=== PATIENT | female | born 1960 | race African-American/Black ===

== ENCOUNTER 2023-10-09 05:24 | Day surgery (SDC) | payer OTHER ==
[2023-10-05 15:22] VITALS: BMI 23.1
[2023-10-09 10:30] VITALS: TEMP 97.8
[2023-10-09 10:42] VITALS: RESP 18
[2023-10-09 10:58] VITALS: PULSE 67
[2023-10-09 11:46] LABS: BASO % 0.2 % (0-2.0); EOS % 0.2 % (0-4.5); HEMATOCRIT 40.2 % (32.4-45.2); HEMOGLOBIN 13.8 GM/dL (10.7-15.3); LYMPH % 35.5 % (8-40); MCH 33.6 pg (25.7-33.7); MCHC 34.4 g/dl (32.0-36.0); MEAN CELL VOLUME 97.5 fl (80-96); MEAN PLT VOLUME 7.7 fl (7.5-11.1); MONO % 9.2 % (3.8-10.2); NEUT % 54.9 % (42.8-82.8); PLATELET COUNT 256 10^3/uL (134-434); RBC 4.13 M/mm3 (3.60-5.2); RDW 13.7 % (11.6-15.6); RETICULOCYTES 1.36 % (0.5-1.5)
[2023-10-09 11:47] VITALS: BP 138/75
[2023-10-09 12:00] LABS: POTASSIUM 3.7 mmol/L (3.5-5.1)
[2023-10-09 12:03] LABS: ALBUMIN 3.9 g/dl (3.4-5.0); BLOOD UREA NITROGEN 9.7 mg/dL (7-18); CALCIUM 9.5 mg/dL (8.5-10.1)
[2023-10-09 12:06] LABS: CREATININE 0.9 mg/dL (0.55-1.3)
[2023-10-09 12:07] LABS: TOT PROT 7.1 g/dl (6.4-8.2)
[2023-10-09 12:08] LABS: BILIRUBIN,TOTAL 0.5 mg/dL (0.2-1)
[2023-10-10 16:11] LABS: GLIADIN ANTIBODY IGA 4 units (0-19); GLIADIN ANTIBODY IGG 2 units (0-19); TRANSGLUTAMINASE IGG < 2 U/mL (0-5)
== END 2023-10-09 11:33 | disposition home or self-care (01) ==
LOC: JASU-ENDO 05:24
PROVIDERS: ATTEND Internal Medicine Gastroenterology
PROC: 0DBL8ZX Excision of Transverse Colon, Via Natural or Artificial Opening Endoscopic, Diagnostic (ICD-10-PCS; 2023-10-09)
PROC: 0DBN8ZX Excision of Sigmoid Colon, Via Natural or Artificial Opening Endoscopic, Diagnostic (ICD-10-PCS; 2023-10-09)
PROC: 0DBP8ZX Excision of Rectum, Via Natural or Artificial Opening Endoscopic, Diagnostic (ICD-10-PCS; 2023-10-09)
PROC: 0DB98ZX Excision of Duodenum, Via Natural or Artificial Opening Endoscopic, Diagnostic (ICD-10-PCS; 2023-10-09)
PROC: 0DB78ZX Excision of Stomach, Pylorus, Via Natural or Artificial Opening Endoscopic, Diagnostic (ICD-10-PCS; 2023-10-09)
PROC: 0DB68ZX Excision of Stomach, Via Natural or Artificial Opening Endoscopic, Diagnostic (ICD-10-PCS; 2023-10-09)
PROC: 0DBK8ZX Excision of Ascending Colon, Via Natural or Artificial Opening Endoscopic, Diagnostic (ICD-10-PCS; principal; 2023-10-09 10:00)
DX: Z12.11 Encounter for screening for malignant neoplasm of colon (principal); K62.1 Rectal polyp; D12.2 Benign neoplasm of ascending colon; D12.5 Benign neoplasm of sigmoid colon; D12.3 Benign neoplasm of transverse colon; Z86.010 Personal history of colon polyps; K29.50 Unspecified chronic gastritis without bleeding
CPT/HCPCS: 36415; 80053; 82728; 82784; 83516; 83540; 83550; 85025; 85045; 88305-TC; 88342-TC